=== PATIENT | female | born 1955 | race Caucasian/White ===

== ENCOUNTER 2023-08-21 02:55 | Emergency (ER) | payer BC ==
[~2023-08-21] VITALS: Ht 157.5 cm; Wt 74.4 kg
[~2023-08-21 02:55] MED LIST: APIX5TAB PO; CARV3.122 PO; LORA10TA19 PO; OMEP-303 PO
[2023-08-21 03:01] VITALS: BP 162/71; PULSE 57; RESP 20; TEMP 97.9; O2SAT 95
[2023-08-21 03:27] VITALS: BP 157/80; PULSE 58; RESP 15; TEMP 98.2
[2023-08-21] MEDS ORDERED: APIXABAN 2.5 MG TAB ONE (04:25)
[2023-08-21] MEDS: APIXABAN 2.5 MG TAB PO STA (04:36)
[2023-08-21] MEDS: carvediloL 3.125 MG TAB PO STA (04:36)
[2023-08-21 04:37] VITALS: O2SAT 95
== END 2023-08-21 05:00 | disposition home or self-care (01) ==
LOC: MED 02:55
DX: I26.99 Other pulmonary embolism without acute cor pulmonale (principal); I10 Essential (primary) hypertension; K21.9 Gastro-esophageal reflux disease without esophagitis; Z79.899 Other long term (current) drug therapy; J45.909 Unspecified asthma, uncomplicated; Z76.0 Encounter for issue of repeat prescription
CPT/HCPCS: 93005; 99283